=== PATIENT | female | born 1985 | race African-American/Black ===

== ENCOUNTER 2021-05-15 09:21 | Emergency (ER) | payer OTHER, SELFPAY ==
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
--- NOTE | ~2021-05-15 | CT_ITS ---
EXAMINATION: CT cervical spine wo con DATE: 05/15/2021 10:41 INDICATION: Neck pain TECHNIQUE: Computed tomography (CT) of the cervical spine was performed without intravenous contrast. The dose-length product (DLP) was 262.15 mGy-cm. Automated exposure control and iterative reconstruc tion technique were employed. COMPARISON: 07/14/2019 FINDINGS: There is no fracture, dislocation, or subluxation. The vertebral body heights, alignment, a nd intervertebral disc spaces are normal. The paravertebral soft tissues are unremarkable. The odonto id is intact. IMPRESSION: 1. No acute osseous abnormality. Reviewed, dictated and finalized at location A.
[2021-05-15 09:59] VITALS: BP 126/76; PULSE 96; RESP 14; TEMP 37.3; O2SAT 99
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
[2021-05-15] MEDS: ACETAMINOPHEN 500 MG TABLET 1000 MG PO (11:04)
== END 2021-05-15 12:24 | disposition home or self-care (01) ==
PROVIDERS: Emergency Provider Emergency Medicine
DX: S09.90XA Unspecified injury of head, initial encounter (principal); S16.1XXA Strain of muscle, fascia and tendon at neck level, initial encounter; S83.422A Sprain of lateral collateral ligament of left knee, initial encounter; V49.40XA Driver injured in collision with unspecified motor vehicles in traffic accident, initial encounter
CPT/HCPCS: 70450; 72125; 73552; 73610; 99284; A9270

== ENCOUNTER 2022-05-03 10:25 | Emergency (ER) | payer BC, SELFPAY ==
[2022-05-03 10:44] VITALS: BP 114/65; PULSE 84; RESP 14; TEMP 36.6; O2SAT 100
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
[2022-05-03] MEDS: cefTRIAXone 1 GM VIAL 0.25 GM IM (11:52)
== END 2022-05-03 12:07 | disposition home or self-care (01) ==
LOC: ANHED 11:53
PROVIDERS: Emergency Provider Emergency Medicine
DX: Z20.811 Contact with and (suspected) exposure to meningococcus (principal)
CPT/HCPCS: 96372; 99283; J0696

== ENCOUNTER 2023-09-24 19:23 | Emergency (ER) | payer BC, SELFPAY ==
[2023-09-24 19:31] VITALS: BP 123/71; PULSE 85; RESP 16; TEMP 36.7; O2SAT 98
--- NOTE | 2023-09-24 19:32 | ED.SKABFB ---
HPI - Skin/Abscess/Foreign Bdy General Chief complaint: Dental/Oral Stated complaint: riright side of face swollen,bump in mouth Time Seen by Provider: 09/24/23 19:32 Source: patient Mode of arrival: ambulatory Limitations: no limitations History of Present Illness HPI narrative: Sergey is a 38-year-old female patient presenting to the clinic today with complaints of possible dental infection to the right upper posterior tooth. She reports that symptoms started yesterday. Noticed some facial swelling to her upper cheek as started today. Denies any fever or chills. Related Data Allergies Allergy/AdvReac Type Severity Reaction Status Date / Time No Known Allergies Allergy Verified 07/14/19 19:43 Review of Systems Review of Systems: Pertinent positives per HPI. Patient denies any fever, chills, rash, headache, visual changes, dizziness, cough, shortness of breath, chest pain, palpitations, nausea, vomiting, diarrhea, constipation, abdominal pain, or any urinary issues. PMFSH Past Medical History Medical History No pertinent past medical history Social History Social History Smoking status: Never smoker Comments At the time of my signature, I reviewed and agree with the nursing past medical, surgical, social, and family history. There is no relevant family history pertinent to the patient complaint. Exam Narrative: General: Well-developed, well nourished, in no apparent distress Head: Normocephalic, atraumatic Eyes: Pupils equally round and reactive to light bilaterally, EOM intact, sclera and conjunctive clear, no discharge, lids normal Ears: TMs intact and clear, ear canals clear, no drainage, grossly hearing normal. Nose: Nares patent, no discharge, no inflammation, no sinus tenderness. Mouth: Oral pharynx without lesions or masses, very poor dentition, tenderness palpation over the left cheek near the sinuses, no fluctuance palpable, does have some swelling and the gums but no obvious dental abscess noted in the gums at this time, MMM. Neck: Supple, trachea midline, no enlargement of anterior or posterior cervical nodes, no thyroid masses or goiter palpable. Cardio: Regular rate and rhythm, s1 and s2 normal, no murmur appreciated. Resp: Clear to auscultation bilaterally, no rhonchi, rales, wheezing or rubs Course Course Emergency Course: Portions of this record may have been created with voice recognition software. Level of Care: Express Care Visit Vital Signs Vital signs: Vital signs reviewed MDM - Skin/Abscess/Foreign Bdy MDM Narrative Medical decision making narrative: At the time of visit patient is resting comfortably on the exam table. Patient appears to be nontoxic. Plan: Will send in prescription for clindamycin. Recommend going to the ER if symptoms worsen in the next 24 hours. Follow-up with dentist as soon as possible will also send in prescription for ibuprofen 800s. Supportive measures were discussed with the patient and they voiced understanding discharge instructions and agrees to treatment plan. Return precautions reviewed Differential Diagnosis Differential diagnosis: Likely other (Dental cavities, gum infection, dental abscess, tooth ache, broken teeth) Discharge Plan Discharge Clinical Impression: Dental infection Patient Disposition: Home, Self-Care Condition: Stable Instructions: Antibiotic Form, Dental Abscess (ED) Additional Instructions: Take clindamycin as prescribed Take [id number] probiotic daily-2 hours before or 2 hours after taking 1 of your doses of clindamycin May take Tylenol/Motrin as needed for pain May apply ice or heat to the affected area Recommend going to the emergency room if symptoms worsen in the next 24 hours. May need imaging to rule out dental abscess. Follow-up with your dentist as soon as po
== END 2023-09-24 19:45 | disposition home or self-care (01) ==
PROVIDERS: Emergency Provider Nurse Practitioner Family
DX: K04.7 Periapical abscess without sinus (principal)
CPT/HCPCS: 99213; G0463

== ENCOUNTER 2025-06-18 08:56 | Emergency (ER) | payer OTHER, SELFPAY ==
--- NOTE | 2025-06-18 08:59 | ED_ITS ---
HPI - Skin/Abscess/Foreign Bdy General Chief complaint: Skin/Abscess/Foreign Body Stated complaint: Insect Bite Time Seen by Provider: 06/18/25 09:07 Source: patient, RN notes reviewed and old records reviewed Mode of arrival: ambulatory Limitations: no limitations History of Present Illness HPI narrative: 80-year-old female presents to the [facility] with concerns for an insect bite that started 3 days ago, Saturday. Center was raised, has been cleaning it with alcohol and peroxide. Describes it is irritating and itchy. Erythema in the surrounding tissue has developed overnight. Full range of motion of the wrist and the elbow. Localized swelling noted Related Data Allergies Allergy/AdvReac Type Severity Reaction Status Date / Time No Known Allergies Allergy Verified 06/18/25 08:58 Review of Systems Review of Systems: All systems reviewed & are unremarkable except as noted in HPI and below Constitutional: Constitutional: Reports no additional constitutional complaints ENT: Reports system reviewed and no additional complaints, except as documented Cardiovascular: Cardiovascular: Reports no additional cardiovascular co mplaints, Denies chest pain and Denies dyspnea Respiratory: Respiratory: Reports no additional respiratory complaints, Denies chest congestion, Denies cough and Denies dyspnea Musculoskeletal: Musculoskeletal: Reports no additional musculoskeletal complaints Integumentary/Breasts: Skin/Breast: Reports as per HPI [facility] Past Medical History Medical History No pertinent past medical history Social History Social History Smoking status: Never smoker Comments At the time of my signature, I reviewed and agree with the nursing past medical, surgical, social, and family history. There is no relevant family history pertinent to the patient complaint. Exam Const: General: cooperative, healthy appearing, comfortable, no acute distress, well developed, alert and well nourished Nutritional Appearance: well nourished Orientation/consciousness: patient oriented x3 Limitations: no limitations HENMT: Head: normal to inspection Eyes: General: appearance normal, both eyes and all related structures Alignment and Position: alignment normal Neck: Neck: normal visual inspection, full ROM, no lymphadenopathy and no meningeal signs Chest: Chest palpation & inspection: normal inspection of the chest Resp: Effort & Inspection: normal respiratory effort and able to speak in complete sentences Auscultation: clear to auscultation bilaterally, no crackles, no rales, no rhonchi and no wheezes Cardio: Rate: regular rate Skin: General skin exam: normal color and no rashes or lesions noted Other: 1 cm raised lesion with surrounding eryt santo 5 x 4.5 cm. Mid left forearm Neuro: General: patient oriented x3, gait normal, moves all extremities and no meningeal signs Cognition (Neuro): normal cognition Speech: normal speech Gait exam (Neuro): Normal gait present Extrem: General: normal to inspection, full ROM, capillary refill normal and normal gait Psych: Appearance: grossly normal and well kempt Mental Status: mental status grossly normal Speech and movement: Normal speech and movement present and Clear speech present Affect: normal affect Attitude: cooperative Course Course Level of Care: Express Care Visit Vital Signs Vital signs: Vital Signs Temperature 97.4 F L 06/18/25 09:07 Pulse Rate 87 06/18/25 09:07 Respiratory Rate 14 06/18/25 09:07 Blood Pressure 107/62 06/18/25 09:07 Pulse Oximetry 98 06/18/25 09:07 Oxygen Delivery Room Air 06/18/25 09:07 Temperature 97.4 F L 06/18/25 09:07 Pulse Rate 87 06/18/25 09:07 Respiratory Rate 14 06/18/25 09:07 Blood Pressure 107/62 06/18/25 09:07 Pulse Oximetry 98 06/18/25 09:07 Oxygen Delivery Room Air 06/18/25 09:07 Reviewed MDM - Skin/Abscess/Foreign Bdy MDM Narrative Medical decision making narrative: Patient sitting in exam room. Patient is nontoxic, vitals stable. Patient presents with lesion with surrounding erythema most likely bug bite possibly inflammation but covering with antibiotic in case of cellulitis. Patient is appropriate for outpatient treatment with close follow-up Discharge instructions reviewed with patient, as well as provided in writing per nursing staff. The instructions also include specific and strict return/GO TO THE ER as well as f/u information. All questions have been answered, and the patient deny any further questions with discharge and discharge plan. Some parts of this dictation were generated by voice recognition software and may contain typographical and/or grammatical inaccuracies. Differential Diagnosis Differential diagnosis: Likely abscess of skin or subcutaneous tissue, dermatophytosis, urticaria, cellulitis, insect bites, impetigo and contact dermatitis Critical Care Time Critical Care Time Critical Care Time: No Discharge Plan Discharge Clinical Impression: Insect bites Patient Disposition: Home Condition: Stable Instructions: Cellulitis (ED), Insect Bite or Sting (ED), General Allergic Reaction (ED) Additional Instructions: Keep area clean and dry. Wash with warm soapy water, pat dry. Take antibiotic an apply steroid cream as needed For the itching you can take Benadryl. Apply ice every 2-3 hours for 15-20 minutes. Follow-up with primary care provider For new or worsening symptoms go directly to the emergency room Patient Language: Taiwanese Prescriptions: New cephalexin 500 mg capsule 500 mg PO QID 7 Days Qty: 28 0RF triamcinolone acetonide 0.1 % cream 1 applic topical BID Qty: 30 0RF No Action ibuprofen 800 mg tablet 800 mg PO TID 10 Days Qty: 30 0RF Follow-up/Referrals: UNKNOWN,DOCTOR [Non-Staff] Stand Alone Forms: Work/School Release IP Time of Disposition: 09:15
[2025-06-18 09:07] VITALS: BP 107/62; PULSE 87; RESP 14; TEMP 36.3; O2SAT 98
== END 2025-06-18 09:19 | disposition home or self-care (01) ==
PROVIDERS: Emergency Provider Nurse Practitioner
DX: S50.862A Insect bite (nonvenomous) of left forearm, initial encounter (principal); W57.XXXA Bitten or stung by nonvenomous insect and other nonvenomous arthropods, initial encounter
CPT/HCPCS: 99213; G0463